=== PATIENT | female | born 1955 | race American Indian/Alaskan Native ===

== ENCOUNTER 2016-12-08 23:12 | Inpatient (IN) | payer MEDICARE, MEDICAID ==
--- NOTE | 2016-12-09 00:06 | ED PDOC ---
HPI: Abdomen Time Seen by Provider: 12/08/16 23:19 Chief Complaint (Nursing): Abdominal Pain Chief Complaint (Provider): suprapubic pain and pressure, dysuria, b/l back pain History Per: Patient, EMS History/Exam Limitations: other (pt is poor historian ) Onset/Duration Of Symptoms: Hrs Outside of [place] travel?: No Current Symptoms Are (Timing): Still Present Additional Complaint(s): 61yo female with PMHx including HIV, CVA (w/ residual right sided deficits), and UTIs presents to the ED with c/o suprapubic pain and pressure as well as dysuria and b/l back pain. EMS reports patient was seen at [facility] yesterday for similar and discharged however patient does not recall. Patient is a poor historian and hx is limited. Past Medical History Reviewed: Historical Data, Nursing Documentation, Vital Signs Vital Signs: Last Vital Signs Temp 98.0 F 12/08/16 23:15 Pulse 64 12/09/16 04:30 Resp 18 12/09/16 04:30 BP 150/88 12/09/16 04:30 Pulse Ox 98 12/09/16 04:30 - Medical History PMH: Arthritis, Bronchitis, COPD, CVA (Multiple; with residual right sided weakness), Depression, Diabetes, Gastritis, Hepatitis (C), HIV, HTN, Hypercholesterolemia, Hyperlipidemia, Osteoporosis, Rheumatoid Arthritis, Chronic Pain Denies: Chronic Kidney Disease Other PMH: UTIs - Surgical History Surgical History: Appendectomy, Cholecystectomy - Family History Family History: States: No Known Family Hx - Immunization History Hx Tetanus Toxoid Vaccination: No Hx Influenza Vaccination: Yes Hx Pneumococcal Vaccination: No - Home Medications Home Medications: Ambulatory Orders Medication Instructions Recorded Acyclovir [Zovirax] 400 mg PO BID 12/09/16 Atazanavir [Reyataz] 200 mg PO BID 12/09/16 Docusate Sodium [Dulcolax Stool 100 mg PO BID 12/09/16 Softener] Emtricitabine/Tenofovir Diso 200 mg PO DAILY 12/09/16 [Truvada 200 MG-300 MG] Escitalopram [Lexapro] 10 mg PO DAILY 12/09/16 Gabapentin [Neurontin] 100 mg PO TID 12/09/16 Lisinopril [Zestril] 20 mg PO DAILY 12/09/16 Pantoprazole [Protonix EC Tab] 40 mg PO DAILY 12/09/16 Sulfamethoxazole/Trimethoprim 1 tab PO BID 12/09/16 [Sulfamethoxazole-Tmp Ss Tablet] traZODone [Desyrel] 50 mg PO DAILY 12/09/16 - Allergies Allergies/Adverse Reactions: Allergies Allergy/AdvReac Type Severity Reaction Status Date / Time No Known Allergies Allergy Verified 12/08/16 23:15 Review of Systems ROS Statement: Except As Marked, All Systems Reviewed And Found Negative Gastrointestinal: Positive for: Abdominal Pain (suprapubic pain and pressure ) Genitourinary Female: Positive for: Dysuria Musculoskeletal: Positive for: Back Pain (b/l ) Physical Exam - Reviewed Nursing Documentation Reviewed: Yes Vital Signs Reviewed: Yes - Physical Exam Appears: Positive for: Well, No Acute Distress Head Exam: Positive for: ATRAUMATIC, NORMAL INSPECTION, NORMOCEPHALIC Skin: Positive for: Normal Color, Warm, Dry Eye Exam: Positive for: Normal appearance, EOMI, PERRL ENT: Positive for: Normal ENT Inspection Neck: Positive for: Normal, Painless ROM, Supple Cardiovascular/Chest: Positive for: Regular Rate, Rhythm. Negative for: Murmur , Tachycardia Respiratory: Positive for: Normal Breath Sounds. Negative for: Wheezing, Respiratory Distress Gastrointestinal/Abdominal: Positive for: Soft, Tenderness (suprapubic ) Back: Positive for: L CVA Tenderness (mild ), R CVA Tenderness (mild ) Extremity: Positive for: Normal ROM, Other (RUE contracted ). Negative for: Tenderness, Swelling Neurologic/Psych: Positive for: Alert, Oriented - Laboratory Results Result Diagrams: 12/08/16 23:35 12/08/16 23:35 - ECG O2 Sat by Pulse Oximetry: 99 Pulse Ox Interpretation: Normal (RA) Medical Decision Making Medical Decision Makin: Impression: chronic abdominal pain vs. UTI vs. pyelo Plan: CT A/P Labs Toradol 15mg IVP reassess 5aM: Pt. w/ continued UTI despite recent admit w/ IV Abx and PO bactrim at home , will admit for IV ABx. Case discussed with Dr. Hough. Scribe Attestation: Documented by Carmen Azul acting as a scribe for Adonay Smith MD. Provider Scribe Attestation: All medical record entries made by the Scribe were at my direction and personally dictated by me. I have reviewed the chart and agree that the record accurately reflects my personal performance of the history, physical exam, medical decision making, and the department course for this patient. I have also personally directed, reviewed, and agree with the discharge instructions and disposition. Disposition - Clinical Impression Clinical Impression: UTI (urinary tract infection) - Patient ED Disposition Is Patient to be Admitted: Yes - Disposition Disposition Time: 05:16 Condition: STABLE
[2016-12-09 00:34] LABS: BASO # 0.1 K/uL (0.0-0.2); BASO % 0.9 % (0.0-2.0); EOS # 0.1 K/uL (0.0-0.7); EOS % 1.5 % (0.0-4.0); HEMATOCRIT 37.7 % (34.0-47.0); LYMPH # 3.8 K/uL (1.0-4.3); LYMPH % 49.1 % (20.0-40.0); MEAN CELL VOLUME 87.1 fl (81.0-99.0); MEAN CORPUSCULAR HEMOGLOBIN 29.6 pg (27.0-31.0); MEAN CORPUSCULAR HGB CONC 33.9 g/dL (33.0-37.0); MONO # 0.6 K/uL (0.0-0.8); MONO % 7.7 % (0.0-10.0); NEUT # 3.2 K/uL (1.8-7.0); NEUT % 40.8 % (50.0-75.0); NRBC % 0.2 % (0.0-0.0); RED CELL DISTRIBUTION WIDTH 15.8 % (11.5-14.5); WHITE BLOOD COUNT 7.9 K/uL (4.8-10.8)
[2016-12-09 00:46] LABS: RBC URINE 7 /hpf (0-3); URINE BACTERIA MOD (<OCC); URINE BILIRUBIN NEGATIVE (NEGATIVE); URINE BLOOD NEGATIVE (NEGATIVE); URINE COLOR AMBER (YELLOW); URINE GLUCOSE (UA) NEG (Normal); URINE KETONE TRACE mg/dL (NEGATIVE); URINE LEUKOCYTE ESTERASE LARGE Leu/uL (Negative); URINE PROTEIN 30 mg/dL (NEGATIVE); WBC URINE 91 /hpf (0-5)
[2016-12-09 00:50] LABS: ALB/GLOB RATIO 0.8 (1.0-2.1); BILIRUBIN,TOTAL 0.5 mg/dl (0.2-1.3); CALCIUM 8.8 mg/dL (8.4-10.2); POTASSIUM 3.8 MMOL/L (3.6-5.0); TOTAL PROTEIN 9.4 G/DL (6.3-8.2)
[2016-12-09] MEDS ORDERED: Sodium Chloride 0.9% 50 ML IV ONE (01:06)
[2016-12-09] MEDS ORDERED: Iohexol 300 50 ML ONE (01:06)
--- NOTE | 2016-12-09 03:11 | CT ---
EXAM: CT Abdomen and Pelvis With Intravenous Contrast CLINICAL HISTORY: 61 years old, female; Pain; Other: Dysuria; Additional info: HX of hiv, dysuria, R/O pyelo TECHNIQUE: Axial computed tomography images of the abdomen and pelvis with intravenous contrast. This CT exam was performed using one or more of the following dose reduction techniques: automated exposure control, adjustment of the mA and/or kV according to patient size, and/or use of iterative reconstruction technique. Coronal and sagittal reformatted images were created and reviewed. CONTRAST: 90 mL of [id number] administered intravenously. EXAM DATE/TIME: 12/08/2016 11:29 PM COMPARISON: CT - ABD PELVIS PO IV CONTRAST 09/10/2015 6:04:39 PM FINDINGS: Cholecystectomy clips are present. The liver is normal. The spleen is normal. The pancreas is normal. No hydronephrosis or perinephric stranding. The wall of the urinary bladder is slightly prominent at least partially due to incomplete distention. Again seen is a moderate hiatal hernia. The colon is distended with stool consistent with constipation. A normal appendix is identified series 3 images 100 - 110, coronal images 34 through 40. Please note the history states status post appendectomy. Bilateral femoral lymph nodes. IMPRESSION: Stable hiatal hernia. Mild constipation. Underdistended urinary bladder.Correlation with urinalysis could be performed to exclude infectious/inflammatory process.
[2016-12-09] MEDS ORDERED: levoFLOXacin 750 mg in D5W 750 MG/150 ML BAG IVPB STA (05:15)
[2016-12-09] MEDS: levoFLOXacin 750 mg in D5W 750 MG/150 ML BAG IVPB SCH (08:57)
[2016-12-09] MEDS ORDERED: Emtricitabine-Tenofovir 200 mg-300 mg Tab PO SCH (09:00)
[2016-12-09] MEDS ORDERED: levoFLOXacin 750 mg in D5W 150 ML BAG IVPB SCH (09:00)
[2016-12-09] MEDS: Enoxaparin 40 mg Syringe SC SCH (09:47)
[2016-12-09] MEDS: Pantoprazole 40 mg EC Tab PO SCH (09:49)
[2016-12-09] MEDS: Emtricitabine-Tenofovir 200 mg-300 mg Tab PO SCH (09:53)
[2016-12-09] MEDS: Insulin Regular 100 units/ml SC SCH ×3 (12:26→22:38)
--- NOTE | 2016-12-09 15:54 | CP.PCM.HP ---
History of Present Illness - History of Present Illness History of Present Illness: 61 year old female with PMHx of HTN, HLD, DM, multiple CVAs(w/ residual right sided deficits), COPD, HIV, Hep C presented to ED via EMS w/ complaints suprapubic pain and pressure as well as dysuria and b/l back pain. Patient was evaluated by [facility] one day ago and was discharged at that time. Patient was found to have persistent UTI in ED with failure of outpatient treatment, admitted for IV antibiotic therapy. Patient was seen and examined at bedside with attending. No acute events overnight. Denies pain at this time. PMH: HTN, HLD, multiple CVAs, COPD, HIV, Hep C, DM, multiple UTIs PSH: Appendectomy, Cholecystectomy, and Hysterectomy Home meds: Lisinopril, Truvada, Atazanavir, Acyclovir All: NKDA SH: Denies EtOH, drug or tobacco use (former smoker) History is limited due to poor historian, supplemented by chart review Present on Admission - Present on Admission Any Indicators Present on Admission: No Review of Systems - Review of Systems All systems: reviewed and no additional remarkable complaints except (mentioned in HPI) Past Patient History - Infectious Disease Hx of Infectious Diseases: None - Tetanus Immunizations Tetanus Immunization: Unknown - Past Medical History & Family History Past Medical History?: Yes - Past Social History Smoking Status: Never Smoked - CARDIAC Hx Cardiac Disorders: Yes Hx Hypercholesterolemia: Yes Hx Hypertension: Yes - PULMONARY Hx Respiratory Disorders: Yes Hx Bronchitis: Yes Hx Chronic Obstructive Pulmonary Disease (COPD): Yes - NEUROLOGICAL Hx Neurological Disorder: Yes HX Cerebrovascular Accident: Yes (Rt sided deficit) - HEENT Hx HEENT Problems: No - RENAL Hx Chronic Kidney Disease: No - ENDOCRINE/METABOLIC Hx Endocrine Disorders: Yes Hx Diabetes Mellitus Type 2: Yes - HEMATOLOGICAL/ONCOLOGICAL Hx Blood Disorders: Yes Hx Hepatitis C: Yes Hx Human Immunodeficiency Virus (HIV): Yes - INTEGUMENTARY Hx Dermatological Problems: No - MUSCULOSKELETAL/RHEUMATOLOGICAL Hx Musculoskeletal Disorders: Yes Hx Arthritis: Yes Hx Back Pain: Yes Hx Falls: No Hx Rheumatoid Arthritis: Yes - GASTROINTESTINAL Hx Gastrointestinal Disorders: Yes Hx Gastritis: Yes - GENITOURINARY/GYNECOLOGICAL Hx Genitourinary Disorders: Yes Hx Urinary Tract Infection: Yes - PSYCHIATRIC Hx Psychophysiologic Disorder: Yes Hx Depression: Yes Hx Substance Use: No - SURGICAL HISTORY Hx Surgeries: Yes Hx Appendectomy: Yes Hx Cholecystectomy: Yes - ANESTHESIA Hx Anesthesia: Yes Hx Anesthesia Reactions: No Hx Malignant Hyperthermia: No Meds Allergies/Adverse Reactions: Allergies Allergy/AdvReac Type Severity Reaction Status Date / Time No Known Allergies Allergy Verified 12/08/16 23:15 Physical Exam - Constitutional Appears: Non-toxic, No Acute Distress - Head Exam Head Exam: ATRAUMATIC, NORMAL INSPECTION, NORMOCEPHALIC - Eye Exam Eye Exam: Normal appearance - Respiratory Exam Respiratory Exam: Clear to Auscultation Bilateral, NORMAL BREATHING PATTERN - Cardiovascular Exam Cardiovascular Exam: REGULAR RHYTHM, RRR, +S1, +S2 - GI/Abdominal Exam GI & Abdominal Exam: Normal Bowel Sounds, Soft, Tenderness (suprapubic) - Extremities Exam Extremities exam: Positive for: normal inspection Additional comments: RUE contracted - Neurological Exam Neurological exam: Alert - Psychiatric Exam Psychiatric exam: Normal Affect, Normal Mood - Skin Skin Exam: Dry, Normal Color, Warm Results - Vital Signs Recent Vital Signs: Last Vital Signs Temp 97.5 F L 12/09/16 08:33 Pulse 65 12/09/16 08:33 Resp 18 12/09/16 11:06 BP 105/64 12/09/16 08:33 Pulse Ox 94 L 12/09/16 08:33 - Labs Result Diagrams: 12/08/16 23:35 12/08/16 23:35 Assessment & Plan (1) UTI (urinary tract infection) Assessment and Plan: Afebrile. Symptomatic. Failure of outpt treatment ID consulted, appreciate recommendations Abx per ID f/u urine and blood cx monitor vitals Status: Acute (2) HIV disease Assessment and Plan: most recent CD4: 688 c/w home meds Status: Chronic (3) Prophylactic measure Assessment and Plan: lovenox 40mg sc daily Status: Acute
--- NOTE | 2016-12-09 19:38 | CP.PCM.CON ---
History of Present Illness - History of Present Illness History of Present Illness: multiple recurrent uri likely neurogenic bladder hx esbl in past await cultures 61 year old female with PMHx of HTN, HLD, DM, multiple CVAs(w/ residual right sided deficits), COPD, HIV, Hep C presented to ED via EMS w/ complaints suprapubic pain and pressure as well as dysuria and b/l back pain. Patient was evaluated by [facility] one day ago and was discharged at that time. Patient was found to have persistent UTI in ED with failure of outpatient treatment, admitted for IV antibiotic therapy. Patient was seen and examined at bedside with attending. No acute events overnight. Denies pain at this time. PMH: HTN, HLD, multiple CVAs, COPD, HIV, Hep C, DM, multiple UTIs PSH: Appendectomy, Cholecystectomy, and Hysterectomy Home meds: Lisinopril, Truvada, Atazanavir, Acyclovir All: NKDA SH: Denies EtOH, drug or tobacco use (former smoker) History is limited due to poor historian, supplemented by chart review Past Patient History - Infectious Disease Hx of Infectious Diseases: None - Tetanus Immunizations Tetanus Immunization: Unknown - Past Medical History & Family History Past Medical History?: Yes - Past Social History Smoking Status: Never Smoked - CARDIAC Hx Cardiac Disorders: Yes Hx Hypercholesterolemia: Yes Hx Hypertension: Yes - PULMONARY Hx Respiratory Disorders: Yes Hx Bronchitis: Yes Hx Chronic Obstructive Pulmonary Disease (COPD): Yes - NEUROLOGICAL Hx Neurological Disorder: Yes HX Cerebrovascular Accident: Yes (Rt sided deficit) - HEENT Hx HEENT Problems: No - RENAL Hx Chronic Kidney Disease: No - ENDOCRINE/METABOLIC Hx Endocrine Disorders: Yes Hx Diabetes Mellitus Type 2: Yes - HEMATOLOGICAL/ONCOLOGICAL Hx Blood Disorders: Yes Hx Hepatitis C: Yes Hx Human Immunodeficiency Virus (HIV): Yes - INTEGUMENTARY Hx Dermatological Problems: No - MUSCULOSKELETAL/RHEUMATOLOGICAL Hx Musculoskeletal Disorders: Yes Hx Arthritis: Yes Hx Back Pain: Yes Hx Falls: No Hx Rheumatoid Arthritis: Yes - GASTROINTESTINAL Hx Gastrointestinal Disorders: Yes Hx Gastritis: Yes - GENITOURINARY/GYNECOLOGICAL Hx Genitourinary Disorders: Yes Hx Urinary Tract Infection: Yes - PSYCHIATRIC Hx Psychophysiologic Disorder: Yes Hx Depression: Yes Hx Substance Use: No - SURGICAL HISTORY Hx Surgeries: Yes Hx Appendectomy: Yes Hx Cholecystectomy: Yes - ANESTHESIA Hx Anesthesia: Yes Hx Anesthesia Reactions: No Hx Malignant Hyperthermia: No Meds Allergies/Adverse Reactions: Allergies Allergy/AdvReac Type Severity Reaction Status Date / Time No Known Allergies Allergy Verified 12/08/16 23:15 - Medications Medications: Current Medications Acyclovir (Zovirax) 400 mg PO BID [facility] Last Admin: 12/09/16 18:36 Dose: 400 mg Atazanavir (Reyataz) 200 mg PO BID [facility] Last Admin: 12/09/16 16:06 Dose: 200 mg Docusate Sodium (Colace) 100 mg PO BID [facility] Last Admin: 12/09/16 16:07 Dose: 100 mg Emtricitabine/Tenofovir (Truvada 200 Mg-300 Mg) 1 tab PO DAILY [facility] Last Admin: 12/09/16 09:53 Dose: 1 tab Enoxaparin Sodium (Lovenox) 40 mg SC DAILY [facility] PRN Reason: Protocol Last Admin: 12/09/16 09:47 Dose: 40 mg Escitalopram Oxalate (Lexapro) 10 mg PO DAILY [facility] Last Admin: 12/09/16 09:49 Dose: 10 mg Gabapentin (Neurontin) 100 mg PO TID [facility] Last Admin: 12/09/16 16:06 Dose: 100 mg Levofloxacin/Dextrose (Levaquin 750mg) 750 mg in 150 mls @ 100 mls/hr IVPB DAILY [facility] Last Admin: 12/09/16 08:57 Dose: Not Given Insulin Human Regular (Humulin R) 0 units SC ACHS [facility] PRN Reason: Protocol Last Admin: 12/09/16 16:16 Dose: Not Given Lactulose (Enulose) 20 gm PO DAILY PRN PRN Reason: Constipation Lisinopril (Zestril) 20 mg PO DAILY [facility] Last Admin: 12/09/16 09:48 Dose: 20 mg Pantoprazole Sodium (Protonix Ec Tab) 40 mg PO DAILY [facility] Last Admin: 12/09/16 09:49 Dose: 40 mg Trazodone HCl (Desyrel) 50 mg PO DAILY [facility] Last Admin: 12/09/16 09:49 Dose: 50 mg Results - Vital Signs Recent Vital Signs: Last Vital Signs Temp 97.6 F 12/09/16 16:13 Pulse 70 12/09/16 16:13 Resp 19 12/09/16 16:13 BP 106/67 12/09/16 16:13 Pulse Ox 93 L 12/09/16 16:13 - Labs Result Diagrams: 12/08/16 23:35 12/08/16 23:35 Labs: Laboratory Results - last 24 hr 12/09/16 12/09/16 10:52 16:15 POC Glucose (mg/dL) 129 H 140 H
[2016-12-10] MEDS: Insulin Regular 100 units/ml SC SCH ×4 (07:33→22:17)
[2016-12-10] MEDS ORDERED: Sodium Chloride 0.9% 500 ML IV ONE (07:48)
[2016-12-10 08:23] LABS: HEMATOCRIT 33.4 % (34.0-47.0); MEAN CELL VOLUME 86.7 fl (81.0-99.0); MEAN CORPUSCULAR HEMOGLOBIN 29.9 pg (27.0-31.0); MEAN CORPUSCULAR HGB CONC 34.5 g/dL (33.0-37.0); RED CELL DISTRIBUTION WIDTH 15.8 % (11.5-14.5); WHITE BLOOD COUNT 7.3 K/uL (4.8-10.8)
[2016-12-10 08:30] LABS: ALB/GLOB RATIO 0.8 (1.0-2.1); BILIRUBIN,TOTAL 0.4 mg/dl (0.2-1.3); CALCIUM 9.1 mg/dL (8.4-10.2); POTASSIUM 4.4 MMOL/L (3.6-5.0); TOTAL PROTEIN 8.2 G/DL (6.3-8.2)
[2016-12-10] MEDS: Enoxaparin 40 mg Syringe SC SCH (08:58)
[2016-12-10] MEDS: Pantoprazole 40 mg EC Tab PO SCH (08:59)
[2016-12-10] MEDS: Emtricitabine-Tenofovir 200 mg-300 mg Tab PO SCH (08:59)
[2016-12-10] MEDS: levoFLOXacin 750 mg in D5W 750 MG/150 ML BAG IVPB SCH (09:02)
--- NOTE | 2016-12-10 13:30 | CP.PCM.PN ---
Subjective - Date & Time of Evaluation Date of Evaluation: 12/10/16 Time of Evaluation: 07:28 - Subjective Subjective: Patient seen and examined at bedside with attending. No acute events overnight. Spoke with nursing staff. Patient was seen by ID yesterday. Mild suprapubic pain that is well controlled. No fever, chills, chest pain, sob, or change in bowels. Objective - Vital Signs/Intake and Output Vital Signs (last 24 hours): Temp Pulse Resp BP Pulse Ox 97.6 F 92 H 18 87/49 L 100 12/10/16 08:28 12/10/16 08:28 12/10/16 08:28 12/10/16 08:28 12/10/16 08:28 - Medications Medications: Current Medications Acyclovir (Zovirax) 400 mg PO BID [facility] Last Admin: 12/10/16 08:59 Dose: 400 mg Atazanavir (Reyataz) 200 mg PO BID [facility] Last Admin: 12/10/16 08:58 Dose: 200 mg Docusate Sodium (Colace) 100 mg PO BID [facility] Last Admin: 12/10/16 08:58 Dose: 100 mg Emtricitabine/Tenofovir (Truvada 200 Mg-300 Mg) 1 tab PO DAILY [facility] Last Admin: 12/10/16 08:59 Dose: 1 tab Enoxaparin Sodium (Lovenox) 40 mg SC DAILY [facility] PRN Reason: Protocol Last Admin: 12/10/16 08:58 Dose: 40 mg Escitalopram Oxalate (Lexapro) 10 mg PO DAILY [facility] Last Admin: 12/10/16 08:58 Dose: 10 mg Gabapentin (Neurontin) 100 mg PO TID [facility] Last Admin: 12/10/16 08:59 Dose: 100 mg Levofloxacin/Dextrose (Levaquin 750mg) 750 mg in 150 mls @ 100 mls/hr IVPB DAILY [facility] Last Admin: 12/10/16 09:02 Dose: 100 mls/hr Insulin Human Regular (Humulin R) 0 units SC ACHS [facility] PRN Reason: Protocol Last Admin: 12/10/16 11:27 Dose: Not Given Lactulose (Enulose) 20 gm PO DAILY PRN PRN Reason: Constipation Lisinopril (Zestril) 20 mg PO DAILY [facility] Last Admin: 12/10/16 08:59 Dose: 20 mg Pantoprazole Sodium (Protonix Ec Tab) 40 mg PO DAILY [facility] Last Admin: 12/10/16 08:59 Dose: 40 mg Trazodone HCl (Desyrel) 50 mg PO DAILY [facility] Last Admin: 12/10/16 08:59 Dose: 50 mg - Labs Labs: 12/10/16 07:15 12/10/16 07:15 - Constitutional Appears: Well, Non-toxic, No Acute Distress - Head Exam Head Exam: NORMAL INSPECTION - Eye Exam Eye Exam: Normal appearance - ENT Exam ENT Exam: Normal Exam - Neck Exam Neck Exam: Normal Inspection - Respiratory Exam Respiratory Exam: Clear to Ausculation Bilateral, NORMAL BREATHING PATTERN - GI/Abdominal Exam GI & Abdominal Exam: Soft, Normal Bowel Sounds. absent: Tenderness - Extremities Exam Extremities Exam: absent: Calf Tenderness - Neurological Exam Neurological Exam: Alert - Psychiatric Exam Psychiatric exam: Normal Affect, Normal Mood - Skin Skin Exam: Dry, Intact, Normal Color, Warm Assessment and Plan (1) UTI (urinary tract infection) Assessment & Plan: Recurrent UTI, Failure of outpt treatment Afebrile. Symptomatic. Low BP this AM, replace with NS bolus, continue to monitor ID consulted, appreciate recommendations Abx per ID f/u urine and blood cx pending monitor vitals Status: Acute (2) HIV disease Assessment & Plan: most recent CD4: 688 c/w home meds Status: Chronic (3) Prophylactic measure Assessment & Plan: lovenox 40mg sc daily Status: Acute
--- NOTE | 2016-12-10 17:57 | CP.PCM.PN ---
Subjective - Date & Time of Evaluation Date of Evaluation: 12/10/16 Time of Evaluation: 08:00 - Subjective Subjective: awake alert nad Objective - Vital Signs/Intake and Output Vital Signs (last 24 hours): Temp Pulse Resp BP Pulse Ox 98.2 F 62 17 127/71 94 L 12/10/16 15:55 12/10/16 15:55 12/10/16 15:55 12/10/16 15:55 12/10/16 15:55 - Medications Medications: Current Medications Acyclovir (Zovirax) 400 mg PO BID [facility] Last Admin: 12/10/16 16:18 Dose: 400 mg Atazanavir (Reyataz) 200 mg PO BID [facility] Last Admin: 12/10/16 16:18 Dose: 200 mg Docusate Sodium (Colace) 100 mg PO BID [facility] Last Admin: 12/10/16 16:18 Dose: 100 mg Emtricitabine/Tenofovir (Truvada 200 Mg-300 Mg) 1 tab PO DAILY [facility] Last Admin: 12/10/16 08:59 Dose: 1 tab Enoxaparin Sodium (Lovenox) 40 mg SC DAILY [facility] PRN Reason: Protocol Last Admin: 12/10/16 08:58 Dose: 40 mg Escitalopram Oxalate (Lexapro) 10 mg PO DAILY [facility] Last Admin: 12/10/16 08:58 Dose: 10 mg Gabapentin (Neurontin) 100 mg PO TID [facility] Last Admin: 12/10/16 16:18 Dose: 100 mg Levofloxacin/Dextrose (Levaquin 750mg) 750 mg in 150 mls @ 100 mls/hr IVPB DAILY [facility] Last Admin: 12/10/16 09:02 Dose: 100 mls/hr Insulin Human Regular (Humulin R) 0 units SC ACHS [facility] PRN Reason: Protocol Last Admin: 12/10/16 16:15 Dose: Not Given Lactulose (Enulose) 20 gm PO DAILY PRN PRN Reason: Constipation Lisinopril (Zestril) 20 mg PO DAILY [facility] Last Admin: 12/10/16 08:59 Dose: 20 mg Pantoprazole Sodium (Protonix Ec Tab) 40 mg PO DAILY [facility] Last Admin: 12/10/16 08:59 Dose: 40 mg Trazodone HCl (Desyrel) 50 mg PO DAILY [facility] Last Admin: 12/10/16 08:59 Dose: 50 mg - Constitutional Appears: Non-toxic, Chronically Ill - Head Exam Head Exam: NORMOCEPHALIC - Eye Exam Eye Exam: PERRL. absent: Scleral icterus - Neck Exam Neck Exam: Full ROM - Respiratory Exam Respiratory Exam: Decreased Breath Sounds, Rhonchi - Cardiovascular Exam Cardiovascular Exam: REGULAR RHYTHM, +S1, +S2 - GI/Abdominal Exam GI & Abdominal Exam: Distended, Soft. absent: Tenderness - Rectal Exam Rectal Exam: Deferred - Exam Exam: NORMAL INSPECTION - Extremities Exam Extremities Exam: absent: Pedal Edema - Back Exam Back Exam: absent: CVA tenderness (L), CVA tenderness (R) - Neurological Exam Neurological Exam: Alert Assessment and Plan - Assessment and Plan (Free Text) Plan: s/p cva neurogenic bladder hiv/aids recurrent uti consider input
[2016-12-11] MEDS: Insulin Regular 100 units/ml SC SCH ×4 (07:47→21:36)
[2016-12-11] MEDS: Enoxaparin 40 mg Syringe SC SCH (09:00)
[2016-12-11] MEDS: Emtricitabine-Tenofovir 200 mg-300 mg Tab PO SCH (09:01)
[2016-12-11] MEDS: Pantoprazole 40 mg EC Tab PO SCH (09:01)
[2016-12-11] MEDS: levoFLOXacin 750 mg in D5W 750 MG/150 ML BAG IVPB SCH (09:02)
--- NOTE | 2016-12-11 09:53 | PN ---
DATE: 12/11/2016 The patient seen and examined. Interim events noted. Consults noted, appreciated. Infectious disea se followup and intervention noted and appreciated. The patient remains in regular medical floor. T he patient feels okay. Complains of feeling generalized weakness ____. PHYSICAL EXAMINATION: GENERAL: The patient is in no acute distress. VITAL SIGNS: Stable. HEART: S1, S2 normal, regular. LUNGS: Good bilateral air exchange. ABDOMEN: Soft, nontender. EXTREMITIES: No edema, no calf swelling, no tenderness, no acute ischemia. CENTRAL NERVOUS SYSTEM: Essentially unchanged. DIAGNOSTIC DATA: Available diagnostic data reviewed. Overall, patient's general medical condition is stable. PLAN: As ordered. Charles Hough MD cc: [id number] TT: 12/11/2016 09:53:03 Confirmation # [id number] Dictation # [id number] tn
[2016-12-11] MEDS ORDERED: Glucagon Recombinant 1 mg Inj IM PRN (11:27)
[2016-12-11] MEDS ORDERED: Dextrose 50% SYRINGE Inj (50 ml) IV PRN (11:27)
[2016-12-12] MEDS: Insulin Regular 100 units/ml SC SCH ×4 (07:10→22:21)
[2016-12-12] MEDS: Pantoprazole 40 mg EC Tab PO SCH (09:02)
[2016-12-12] MEDS: Enoxaparin 40 mg Syringe SC SCH (09:03)
[2016-12-12] MEDS: Emtricitabine-Tenofovir 200 mg-300 mg Tab PO SCH (09:03)
[2016-12-12] MEDS: levoFLOXacin 750 mg in D5W 750 MG/150 ML BAG IVPB SCH (09:05)
[2016-12-12 09:08] LABS: BASO % 0.7 % (0.0-2.0); EOS # 0.2 K/uL (0.0-0.7); EOS % 2.5 % (0.0-4.0); HEMATOCRIT 34.1 % (34.0-47.0); LYMPH % 49.1 % (20.0-40.0); MEAN CELL VOLUME 87.5 fl (81.0-99.0); MEAN CORPUSCULAR HEMOGLOBIN 29.7 pg (27.0-31.0); MEAN CORPUSCULAR HGB CONC 33.9 g/dL (33.0-37.0); MEAN PLATELET VOLUME 8.8 fl (7.2-11.7); MONO # 0.5 K/uL (0.0-0.8); MONO % 8.2 % (0.0-10.0); NEUT # 2.4 K/uL (1.8-7.0); NEUT % 39.5 % (50.0-75.0); NRBC % 0.1 % (0.0-0.0); RED CELL DISTRIBUTION WIDTH 15.8 % (11.5-14.5)
--- NOTE | 2016-12-12 09:25 | PN ---
DATE: 12/12/2016 The patient seen and examined. Interim events noted. The patient remains on regular medical floor. The patient is sleepy, arousable. Denies any specific complaint generalized weakness. No tima st pain, no shortness of breath, no burning urination, no flank pain. PHYSICAL EXAMINATION: GENERAL: The patient is in no acute distress. VITAL SIGNS: Stable. HEART: S1, S2 normal, regular. LUNGS: Good bilateral air exchange. ABDOMEN: Soft, nontender, no organomegaly, no fluid. Bowel sounds are plus. No sign of acute abdom en. No guarding, no rigidity, no rebound. EXTREMITIES: No edema, no calf swelling, no tenderness, no acute ischemia. CENTRAL NERVOUS SYSTEM: Essentially unchanged. DIAGNOSTIC DATA: Available reviewed. Overall, patient's general medical condition is stable. PLAN: As ordered. Charles Hough MD cc: [id number] TT: 12/12/2016 09:25:18 Confirmation # [id number] Dictation # [id number] en
[2016-12-12 09:32] LABS: ALB/GLOB RATIO 0.8 (1.0-2.1); ALKALINE PHOSPHATASE 92 U/L (38-126); ALT/SGPT 67 U/L (9-52); AST/SGOT 67 U/L (14-36); BILIRUBIN,TOTAL 0.3 mg/dl (0.2-1.3); BLOOD UREA NITROGEN 17 mg/dl (7-17); CARBON DIOXIDE 24 mmol/L (22-30); CHLORIDE 105 mmol/L (98-107); GFR AFRICAN-AMERICAN > 60; GLUCOSE,RANDOM 116 mg/dL (65-105); POTASSIUM 3.6 MMOL/L (3.6-5.0); SODIUM 140 mmol/l (132-148); TOTAL PROTEIN 8.2 G/DL (6.3-8.2)
--- NOTE | 2016-12-12 12:36 | CP.PCM.PN ---
Subjective - Date & Time of Evaluation Date of Evaluation: 12/12/16 Time of Evaluation: 07:00 - Subjective Subjective: growing enterococcus and esbl e coli in urine again iv rx adjusted Objective - Vital Signs/Intake and Output Vital Signs (last 24 hours): Temp Pulse Resp BP Pulse Ox 97.8 F 64 20 151/92 H 98 12/12/16 08:29 12/12/16 09:02 12/12/16 08:29 12/12/16 09:02 12/12/16 08:29 - Medications Medications: Current Medications Acetaminophen (Tylenol 325mg Tab) 650 mg PO Q6 PRN PRN Reason: Pain, Mild (1-3) Acyclovir (Zovirax) 400 mg PO BID [facility] Last Admin: 12/12/16 09:02 Dose: 400 mg Atazanavir (Reyataz) 200 mg PO BID [facility] Last Admin: 12/12/16 09:02 Dose: 200 mg Dextrose (Dextrose 50% Inj) 0 ml IV STAT PRN; Protocol PRN Reason: Hyglycemia Protocol Last Admin: 12/11/16 11:41 Dose: 50 ml Dextrose (Glutose 15) 0 gm PO ONCE PRN; Protocol PRN Reason: Hypoglycemia Protocol Docusate Sodium (Colace) 100 mg PO BID [facility] Last Admin: 12/12/16 09:01 Dose: 100 mg Emtricitabine/Tenofovir (Truvada 200 Mg-300 Mg) 1 tab PO DAILY [facility] Last Admin: 12/12/16 09:03 Dose: 1 tab Escitalopram Oxalate (Lexapro) 10 mg PO DAILY [facility] Last Admin: 12/12/16 09:01 Dose: 10 mg Gabapentin (Neurontin) 100 mg PO TID [facility] Last Admin: 12/12/16 12:12 Dose: 100 mg Glucagon (Glucagen Diagnostic Kit) 0 mg IM STAT PRN; Protocol PRN Reason: Hypoglycemia Protocol Levofloxacin/Dextrose (Levaquin 750mg) 750 mg in 150 mls @ 100 mls/hr IVPB DAILY [facility] Last Admin: 12/12/16 09:05 Dose: 100 mls/hr Insulin Human Regular (Humulin R) 0 units SC ACHS [place] PRN Reason: Protocol Last Admin: 12/12/16 12:16 Dose: Not Given Lactulose (Enulose) 20 gm PO DAILY PRN PRN Reason: Constipation Lisinopril (Zestril) 20 mg PO DAILY [facility] Last Admin: 12/12/16 09:02 Dose: 20 mg Pantoprazole Sodium (Protonix Ec Tab) 40 mg PO DAILY [facility] Last Admin: 12/12/16 09:02 Dose: 40 mg Trazodone HCl (Desyrel) 50 mg PO HS [facility] Last Admin: 12/11/16 21:19 Dose: 50 mg - Labs Labs: 12/12/16 06:45 12/12/16 06:45 - Constitutional Appears: Non-toxic, Chronically Ill - Head Exam Head Exam: NORMOCEPHALIC - Eye Exam Eye Exam: PERRL. absent: Scleral icterus - ENT Exam ENT Exam: Mucous Membranes Dry, Normal External Ear Exam - Neck Exam Neck Exam: absent: Lymphadenopathy - Respiratory Exam Respiratory Exam: Decreased Breath Sounds, Clear to Ausculation Bilateral - Cardiovascular Exam Cardiovascular Exam: REGULAR RHYTHM, +S1, +S2 - GI/Abdominal Exam GI & Abdominal Exam: Distended, Soft. absent: Tenderness - Rectal Exam Rectal Exam: Deferred - Exam Exam: NORMAL INSPECTION - Extremities Exam Extremities Exam: absent: Pedal Edema - Back Exam Back Exam: absent: CVA tenderness (L), CVA tenderness (R) - Neurological Exam Neurological Exam: Alert, Awake, Oriented x3 - Psychiatric Exam Psychiatric exam: Normal Mood - Skin Skin Exam: Dry Assessment and Plan (1) UTI (urinary tract infection) Status: Acute (2) AIDS (acquired immune deficiency syndrome) Status: Acute - Assessment and Plan (Free Text) Assessment: cont iv antibioticxs eval if ok with pmd
[2016-12-12] MEDS: Meropenem 500 MG in Sodium Chloride 0.9% 100 ML IVPB SCH (17:38)
[2016-12-13] MEDS: Meropenem 500 MG in Sodium Chloride 0.9% 100 ML IVPB SCH ×3 (00:41→16:17)
[2016-12-13] MEDS: Insulin Regular 100 units/ml SC SCH ×4 (07:02→22:05)
[2016-12-13 07:58] LABS: HEMATOCRIT 32.2 % (34.0-47.0); MEAN CELL VOLUME 86.4 fl (81.0-99.0); MEAN CORPUSCULAR HEMOGLOBIN 30.1 pg (27.0-31.0); MEAN CORPUSCULAR HGB CONC 34.8 g/dL (33.0-37.0); RED CELL DISTRIBUTION WIDTH 15.8 % (11.5-14.5); WHITE BLOOD COUNT 6.8 K/uL (4.8-10.8)
[2016-12-13 08:20] LABS: ALB/GLOB RATIO 0.8 (1.0-2.1); ALKALINE PHOSPHATASE 87 U/L (38-126); ALT/SGPT 57 U/L (9-52); AST/SGOT 60 U/L (14-36); BILIRUBIN,TOTAL 0.4 mg/dl (0.2-1.3); BLOOD UREA NITROGEN 17 mg/dl (7-17); CARBON DIOXIDE 23 mmol/L (22-30); CHLORIDE 107 mmol/L (98-107); GFR AFRICAN-AMERICAN > 60; GLUCOSE,RANDOM 80 mg/dL (65-105); POTASSIUM 3.5 MMOL/L (3.6-5.0); SODIUM 138 mmol/l (132-148); TOTAL PROTEIN 7.5 G/DL (6.3-8.2)
[2016-12-13] MEDS: Pantoprazole 40 mg EC Tab PO SCH ×2 (08:31→10:33)
[2016-12-13] MEDS: Emtricitabine-Tenofovir 200 mg-300 mg Tab PO SCH ×2 (08:31→10:33)
--- NOTE | 2016-12-13 09:38 | PN ---
DATE: 12/13/2016 The patient seen and examined. Interim events noted. Consults noted, appreciated. The patient indra ins on regular medical floor. The patient feels okay. No specific complaint. No chest pain, no alicia rtness of breath. PHYSICAL EXAMINATION: GENERAL: The patient is in no acute distress. VITAL SIGNS: Stable. HEART: S1, S2 normal, regular. LUNGS: Good bilateral air exchange. ABDOMEN: Soft, nontender. EXTREMITIES: No edema, no calf swelling, no tenderness, no acute ischemia. CENTRAL NERVOUS SYSTEM: Essentially unchanged. DIAGNOSTIC DATA: Available reviewed. Overall, patient's general medical condition is stable. PLAN: As ordered. Charles Hough MD cc: [id number] TT: 12/13/2016 09:37:52 Confirmation # [id number] Dictation # [id number] en
--- NOTE | 2016-12-13 11:40 | CP.PCM.PN ---
Subjective - Date & Time of Evaluation Date of Evaluation: 12/13/16 Time of Evaluation: 08:00 - Subjective Subjective: awake alert NAD Objective - Vital Signs/Intake and Output Vital Signs (last 24 hours): Temp Pulse Resp BP Pulse Ox 98.3 F 55 L 20 111/73 99 12/13/16 09:00 12/13/16 08:32 12/13/16 07:37 12/13/16 08:32 12/13/16 07:37 - Medications Medications: Current Medications Acetaminophen (Tylenol 325mg Tab) 650 mg PO Q6 PRN PRN Reason: Pain, Mild (1-3) Acyclovir (Zovirax) 400 mg PO BID [facility] Last Admin: 12/13/16 10:33 Dose: Not Given Atazanavir (Reyataz) 200 mg PO BID [facility] Last Admin: 12/13/16 10:33 Dose: Not Given Dextrose (Dextrose 50% Inj) 0 ml IV STAT PRN; Protocol PRN Reason: Hyglycemia Protocol Last Admin: 12/11/16 11:41 Dose: 50 ml Dextrose (Glutose 15) 0 gm PO ONCE PRN; Protocol PRN Reason: Hypoglycemia Protocol Docusate Sodium (Colace) 100 mg PO BID [facility] Last Admin: 12/13/16 10:32 Dose: Not Given Emtricitabine/Tenofovir (Truvada 200 Mg-300 Mg) 1 tab PO DAILY [facility] Last Admin: 12/13/16 10:33 Dose: Not Given Enoxaparin Sodium (Lovenox) 40 mg SC DAILY [place] PRN Reason: Protocol Escitalopram Oxalate (Lexapro) 10 mg PO DAILY [facility] Last Admin: 12/13/16 10:33 Dose: Not Given Gabapentin (Neurontin) 100 mg PO TID [facility] Last Admin: 12/13/16 10:32 Dose: Not Given Glucagon (Glucagen Diagnostic Kit) 0 mg IM STAT PRN; Protocol PRN Reason: Hypoglycemia Protocol Meropenem 500 mg/ Sodium (Chloride) 100 mls @ 100 mls/hr IVPB Q8 [facility] Last Admin: 12/13/16 08:32 Dose: 100 mls/hr Vancomycin HCl 1 gm/ Sodium (Chloride) 250 mls @ 166.667 mls/hr IVPB Q12H [facility] Last Admin: 12/13/16 01:54 Dose: 166.667 mls/hr Insulin Human Regular (Humulin R) 0 units SC ACHS [facility] PRN Reason: Protocol Last Admin: 12/13/16 07:02 Dose: Not Given Lactulose (Enulose) 20 gm PO DAILY PRN PRN Reason: Constipation Lisinopril (Zestril) 20 mg PO DAILY [facility] Last Admin: 12/13/16 08:32 Dose: Not Given Pantoprazole Sodium (Protonix Ec Tab) 40 mg PO DAILY [facility] Last Admin: 12/13/16 10:33 Dose: Not Given Trazodone HCl (Desyrel) 50 mg PO HS [facility] Last Admin: 12/12/16 22:19 Dose: 50 mg - Labs Labs: 12/13/16 07:48 12/13/16 07:48 - Constitutional Appears: Non-toxic, Chronically Ill - Head Exam Head Exam: NORMOCEPHALIC - Eye Exam Eye Exam: PERRL. absent: Scleral icterus - ENT Exam ENT Exam: Mucous Membranes Dry, Normal External Ear Exam - Neck Exam Neck Exam: absent: Lymphadenopathy - Respiratory Exam Respiratory Exam: Decreased Breath Sounds - Cardiovascular Exam Cardiovascular Exam: REGULAR RHYTHM Assessment and Plan (1) UTI (urinary tract infection) Status: Acute (2) AIDS (acquired immune deficiency syndrome) Status: Acute
[2016-12-13] MEDS: Enoxaparin 40 mg Syringe SC SCH (12:52)
[2016-12-14 01:36] VITALS: O2SAT 99
[2016-12-14] MEDS: Insulin Regular 100 units/ml SC SCH ×2 (07:30→12:27)
[2016-12-14 07:35] VITALS: BP 117/72; PULSE 52; RESP 18; TEMP 98.2
[2016-12-14 08:21] LABS: HEMATOCRIT 33.5 % (34.0-47.0); MEAN CELL VOLUME 87.1 fl (81.0-99.0); MEAN CORPUSCULAR HEMOGLOBIN 30.1 pg (27.0-31.0); MEAN CORPUSCULAR HGB CONC 34.6 g/dL (33.0-37.0); RED CELL DISTRIBUTION WIDTH 15.9 % (11.5-14.5); WHITE BLOOD COUNT 7.7 K/uL (4.8-10.8)
[2016-12-14 08:41] LABS: ALB/GLOB RATIO 0.8 (1.0-2.1); ALKALINE PHOSPHATASE 96 U/L (38-126); ALT/SGPT 61 U/L (9-52); AST/SGOT 62 U/L (14-36); BILIRUBIN,TOTAL 0.3 mg/dl (0.2-1.3); BLOOD UREA NITROGEN 18 mg/dl (7-17); CALCIUM 9.2 mg/dL (8.4-10.2); CARBON DIOXIDE 25 mmol/L (22-30); CHLORIDE 104 mmol/L (98-107); GFR AFRICAN-AMERICAN > 60; GLUCOSE,RANDOM 97 mg/dL (65-105); POTASSIUM 3.4 MMOL/L (3.6-5.0); SODIUM 139 mmol/l (132-148); TOTAL PROTEIN 7.8 G/DL (6.3-8.2)
[2016-12-14] MEDS: Enoxaparin 40 mg Syringe SC SCH (09:17)
[2016-12-14] MEDS: Meropenem 500 MG in Sodium Chloride 0.9% 100 ML IVPB SCH ×2 (09:17)
[2016-12-14] MEDS: Pantoprazole 40 mg EC Tab PO SCH (09:34)
[2016-12-14] MEDS: Emtricitabine-Tenofovir 200 mg-300 mg Tab PO SCH (09:35)
[2016-12-14] MEDS ORDERED: Potassium Chloride 20 mEq ER Tab PO ONE (11:03)
--- NOTE | 2016-12-14 17:14 | CP.PCM.DIS ---
Provider - Provider Date of Admission: 12/10/16 12:44 Attending physician: Charles Hough MD Time Spent in preparation of Discharge (in minutes): 30 Diagnosis - Discharge Diagnosis (1) UTI (urinary tract infection) Status: Acute Hospital Course - Lab Results Lab Results: Most Recent Lab Values WBC 7.7 K/uL (4.8-10.8) 12/14/16 07:15 RBC 3.85 Mil/uL (3.80-5.20) 12/14/16 07:15 Hgb 11.6 g/dL (12.0-16.0) L 12/14/16 07:15 Hct 33.5 % (34.0-47.0) L 12/14/16 07:15 MCV 87.1 fl (81.0-99.0) 12/14/16 07:15 MCH 30.1 pg (27.0-31.0) 12/14/16 07:15 MCHC 34.6 g/dL (33.0-37.0) 12/14/16 07:15 RDW 15.9 % (11.5-14.5) H 12/14/16 07:15 Plt Count 165 K/uL (130-400) 12/14/16 07:15 MPV 8.8 fl (7.2-11.7) 12/12/16 06:45 Neut % (Auto) 39.5 % (50.0-75.0) L 12/12/16 06:45 Lymph % (Auto) 49.1 % (20.0-40.0) H 12/12/16 06:45 [place] % (Auto) 8.2 % (0.0-10.0) 12/12/16 06:45 Eos % (Auto) 2.5 % (0.0-4.0) 12/12/16 06:45 Baso % (Auto) 0.7 % (0.0-2.0) 12/12/16 06:45 Neut # 2.4 K/uL (1.8-7.0) 12/12/16 06:45 Lymph # 3.0 K/uL (1.0-4.3) 12/12/16 06:45 [place] # 0.5 K/uL (0.0-0.8) 06/04/17 06:45 Eos # 0.2 K/uL (0.0-0.7) 12/12/16 06:45 Baso # 0.0 K/uL (0.0-0.2) 12/12/16 06:45 Sodium 139 mmol/l (132-148) 12/14/16 07:15 Potassium 3.4 MMOL/L (3.6-5.0) L 12/14/16 07:15 Chloride 104 mmol/L (98-107) 12/14/16 07:15 Carbon Dioxide 25 mmol/L (22-30) 12/14/16 07:15 Anion Gap 13 (10-20) 12/14/16 07:15 BUN 18 mg/dl (7-17) H 12/14/16 07:15 Creatinine 0.8 mg/dL (0.7-1.2) 12/14/16 07:15 Est GFR ( Amer) > 60 12/14/16 07:15 Est GFR (Non-Af Amer) > 60 12/14/16 07:15 POC Glucose (mg/dL) 175 mg/dL (65-110) H 12/14/16 10:55 Random Glucose 97 mg/dL (65-105) 12/14/16 07:15 Lactic Acid 1.6 MMOL/L (0.7-2.1) 12/08/16 23:35 Calcium 9.2 mg/dL (8.4-10.2) 12/14/16 07:15 Total Bilirubin 0.3 mg/dl (0.2-1.3) 12/14/16 07:15 AST 62 U/L (14-36) H 12/14/16 07:15 ALT 61 U/L (9-52) H 12/14/16 07:15 Alkaline Phosphatase 96 U/L (38-126) 12/14/16 07:15 Total Protein 7.8 G/DL (6.3-8.2) 12/14/16 07:15 Albumin 3.5 g/dL (3.5-5.0) 12/14/16 07:15 Globulin 4.3 gm/dL (2.2-3.9) H 12/14/16 07:15 Albumin/Globulin Ratio 0.8 (1.0-2.1) L 06/06/17 07:15 Urine Color [place] (YELLOW) 12/09/16 00:30 Urine Clarity Slighty-cloudy (Clear) 12/09/16 00:30 Urine pH 5.0 (5.0-8.0) 12/09/16 00:30 Ur Specific [place] 1.020 (1.003-1.030) 12/09/16 00:30 Urine Protein 30 mg/dL (NEGATIVE) 12/09/16 00:30 Urine Glucose (UA) Neg mg/dL (Normal) 12/09/16 00:30 Urine Ketones Trace mg/dL (NEGATIVE) 12/09/16 00:30 Urine Blood Negative (NEGATIVE) 12/09/16 00:30 Urine Nitrate Negative (NEGATIVE) 12/09/16 00:30 Urine Bilirubin Negative (NEGATIVE) 12/09/16 00:30 Urine Urobilinogen 4.0 mg/dL (0.2-1.0) H 12/09/16 00:30 Ur Leukocyte Esterase Large Abbie/uL (Negative) 12/09/16 00:30 Urine RBC (Auto) 7 /hpf (0-3) H 12/09/16 00:30 Urine Microscopic WBC 91 /hpf (0-5) H 12/09/16 00:30 Ur Squamous Epith Cells 1 /hpf (0-5) 12/09/16 00:30 Urine Bacteria Mod (<OCC) H 12/09/16 00:30 Vancomycin Trough < 5.0 ug/mL (5.0-10.0) L 12/14/16 12:45 Urine Opiates Screen Negative (NEGATIVE) 12/08/16 23:36 Urine Methadone Screen Negative (NEGATIVE) 12/08/16 23:36 Ur Barbiturates Screen Negative (NEGATIVE) 12/08/16 23:36 Ur Phencyclidine Scrn Negative (NEGATIVE) 12/08/16 23:36 Ur Amphetamines Screen Negative (NEGATIVE) 12/08/16 23:36 U Benzodiazepines Scrn Negative (NEGATIVE) 12/08/16 23:36 U Oth Cocaine Metabols Negative (NEGATIVE) 12/08/16 23:36 U Cannabinoids Screen Negative (NEGATIVE) 12/08/16 23:36 - Hospital Course Hospital Course: 61 year old female with PMHx of HTN, HLD, DM, multiple CVAs(w/ residual right sided deficits), COPD, HIV, Hep C presented to ED via EMS w/ complaints suprapubic pain and pressure as well as dysuria and b/l back pain. Patient diagnosed with persitant UTI with failure of outpatient treatment. Treated with IV Rocephin. ID Consulted. Urine cx showed ESBL, therefore antibiotics changed to Meropenem and Vanco, which will be continued on discharge. No complications during admission. Physical therapy evaluated patient during admission. Patient to be discharged to sub acute rehab ([facility]). Discharge Exam - Head Exam Head Exam: ATRAUMATIC, NORMAL INSPECTION, NORMOCEPHALIC - Eye Exam Eye Exam: Normal appearance - Respiratory Exam Respiratory Exam: Clear to PA & Lateral, NORMAL BREATHING PATTERN, UNREMARKABLE - Cardiovascular Exam Cardiovascular Exam: REGULAR RHYTHM, RRR, +S1, +S2 - GI/Abdominal Exam GI & Abdominal Exam: Normal Bowel Sounds, Soft, Unremarkable. absent: Tenderness - Neurological Exam Neurological exam: Alert - Psychiatric Exam Psychiatric exam: Normal Affect, Normal Mood - Skin Skin Exam: Dry, Intact, Normal Color, Warm Discharge Plan - Discharge Medications Prescriptions: Meropenem [Merrem IV] 500 mg IVPB Q8 #21 vial Vancomycin [Vancomycin HCl] 1 gm IV DAILY #7 vial - Follow Up Plan Condition: STABLE Disposition: TRANSF TO SNF Instructions: Urinary Tract Infection in Women (DC)
== END 2016-12-14 14:59 | DRG 689 ==
LOC: H.ER 23:12 → H.ERHOLD 12-09 05:15 → H.MEDSURG1 12-09 07:11 → OBSVTOIN 12-10 12:44 → H.MEDSURG1 12-10 14:53
PROVIDERS: ADMIT Internal Medicine; ATTEND Internal Medicine
DX: N39.0 Urinary tract infection, site not specified (principal); B20 Human immunodeficiency virus [HIV] disease; B95.2 Enterococcus as the cause of diseases classified elsewhere; E11.9 Type 2 diabetes mellitus without complications; I10 Essential (primary) hypertension; F32.9 Major depressive disorder, single episode, unspecified; J44.9 Chronic obstructive pulmonary disease, unspecified; B96.20 Unspecified Escherichia coli [E. coli] as the cause of diseases classified elsewhere; E78.5 Hyperlipidemia, unspecified; E78.00 Pure hypercholesterolemia, unspecified; M06.9 Rheumatoid arthritis, unspecified; G89.29 Other chronic pain; M81.0 Age-related osteoporosis without current pathological fracture; M19.90 Unspecified osteoarthritis, unspecified site; Z86.73 Personal history of transient ischemic attack (TIA), and cerebral infarction without residual deficits; Z87.891 Personal history of nicotine dependence; K29.70 Gastritis, unspecified, without bleeding; B18.2 Chronic viral hepatitis C